=== PATIENT | female | born 1955 | race Caucasian/White ===

== ENCOUNTER → 2020-02-11 11:10 | Outpatient (CLI) | payer OTHER, SELFPAY ==
--- NOTE | 2020-02-11 11:16 | DI.CT.S_ITS ---
PROCEDURE: CT UE RT WO CON INDICATIONS: RIGHT SHOULDER INJURY TECHNIQUE: Noncontrast 1-1.5 mm thick sections acquired from the acromioclavicular joint to the inferior scapula, with coronal and sagittal reformatting. COMPARISON: None. FINDINGS: Image quality: Excellent. Bones: There is suggestion of age indeterminateHill-Sachs deformity involving posterior lateral humeral head. No acute appearing fracture involving anterior inferior glenoid is seen with slight anterior and inferior displacement of the fractured fragment. No other fracture or dislocation is seen. Moderate acromioclavicular joint osteoarthritic changes are seen. Mild glenohumeral joint osteoarthritic change is also noted. Visualized right upper to mid ribs are grossly intact. Soft tissues: There is small glenohumeral joint effusion. Well corticated calcification involving mid to posterior fibers of distal supraspinatus at its insertion on the greater tuberosity is seen suggestive of calcific tendinitis. No gross full-thickness rotator cuff tendon rupture. Visualized right lung field is clear. IMPRESSION: 1. acute appearing anterior inferior glenoid fracture with slightly displaced bony fragment consistent with a Bankart fracture. Age-indeterminate Hill-Sachs deformity involving posterior superior humeral head. No other fracture or dislocation is seen. Moderate acromioclavicular joint osteoarthritis and mild glenohumeral joint osteoarthritis. 2. suggestion of calcific tendonitis involving distal supraspinatus. No gross full-thickness rotator cuff tendon rupture. No significant rotator cuff muscle atrophy. Small joint effusion within the glenohumeral joint. Dictated by: Jer Schneider M.D. on 02/11/2020 at 13:35 Approved by: Jer Schneider M.D. on 02/11/2020 at 13:39
== END ==
PROVIDERS: Referring Provider Physician Assistant; Visit Provider Physician Assistant
DX: S42.141A Displaced fracture of glenoid cavity of scapula, right shoulder, initial encounter for closed fracture (principal); M19.011 Primary osteoarthritis, right shoulder; X58.XXXA Exposure to other specified factors, initial encounter
CPT/HCPCS: 73200

== ENCOUNTER → 2023-05-22 09:07 | Outpatient (CLI) | payer MEDICARE, SELFPAY ==
[2023-05-22 19:26] LABS: Alanine Aminotransferase 22 IU/L (<35); Albumin 3.9 g/dL (3.5-5.0); Albumin Globulin Ratio 1.3 (1.0-2.8); Alkaline Phosphatase 83 U/L (38-126); Aspartate Aminotransferase 26 IU/L (14-36); BUN Creatinine Ratio 15.7 (6-22); Bilirubin Total 0.4 mg/dL (0.2-1.3); Blood Urea Nitrogen 11 mg/dL (7-17); Calcium 9.6 mg/dL (8.4-10.2); Carbon Dioxide 26 mmol/L (22-32); Chloride 102 mmol/L (98-107); Cholesterol 267 mg/dL (140-199); Estimated Glomerular Filt Rate > 60 mL/min (>60); Globulin 3.1 g/dL (1.7-4.1); Glucose 113 mg/dL (80-110); HDL Cholesterol 48 mg/dL (40-60); HEMOLYSIS 19 (0-50); LDL Cholesterol Calculated 189 mg/dL (<100); Potassium 4.2 mmol/L (3.4-5.1); Sodium 138 mmol/L (137-145); Triglycerides 148 mg/dL (35-150)
[2023-05-22 19:42] LABS: Vitamin D 25 Hydroxy (D3) 43.9 ng/mL (30.0-100.0)
== END ==
PROVIDERS: PCP Family Medicine; Visit Provider Family Medicine
DX: Z13.1 Encounter for screening for diabetes mellitus (principal); Z13.6 Encounter for screening for cardiovascular disorders; E55.9 Vitamin D deficiency, unspecified
CPT/HCPCS: 80053; 80061; 82306

== ENCOUNTER → 2025-05-28 10:22 | Outpatient (CLI) | payer MEDICARE, SELFPAY ==
--- NOTE | 2025-05-28 10:24 | DI.RAD.S_ITS ---
PROCEDURE: XR DEXA AXIAL SKELETON INDICATIONS: osteopenia COMPARISON: None. FINDINGS: Lumbar Spine: Bone mineral density 0.857 g/cm2, T score -1.7. Left Femoral Neck: Bone mineral density 0.618 g/cm2, T score -2.1. Left Hip: Bone mineral density 0.771 g/cm2, T score -1.4. Fracture Risk Calculation (when applicable): 10-year fracture risk of a major osteoporotic fracture 11 percent and of a hip fracture 1.9 percent. (T score greater or equal to -1.0 to: NORMAL) (T score from -1.1 to -2.4: OSTEOPENIA) (T score less than or equal to -2.5: OSTEOPOROSIS) IMPRESSION: Low bone mineral density (osteopenia) by WHO classification. Follow-up guidelines as follows: Osteoporosis: Consider a repeat DEXA and Vertebral Fracture Assessment (VFA) exam in 2 years or sooner if medically necessary, to reassess this patient's status. Osteopenia: Consider a repeat DEXA in 2-3 years to reassess this patient's status, or if there is a new clinical indication. Normal: Consider a repeat DEXA in 5 years or sooner, or if there is a new clinical indication. All treatment decisions require clinical judgment and consideration of individual patient factors, including patient preferences, comorbidities, previous drug use, risk factors not captured in the FRAX model (e.g., frailty, falls, vitamin D deficiency, increased bone turnover, interval significant decline in bone density ) and possible under- or over-estimation of fracture risk by FRAX. In addition, the NOF Guide recommends that FDA-approved medical therapies be considered in postmenopausal women and men age >= 50 years with a: * Hip or vertebral (clinical or morphometric) fracture * T-score of <=-2.5 at the spine or hip * Ten-year fracture probability by FRAX of >= 3% for hip fracture or >=20% for major osteoporotic fracture. Dictated by: Wally Solitairo M.D. on 05/30/2025 at 13:56 Approved by: Wally Solitario M.D. on 05/30/2025 at 13:57
== END ==
PROVIDERS: PCP Family Medicine; Referring Provider Family Medicine; Visit Provider Family Medicine
DX: M85.89 Other specified disorders of bone density and structure, multiple sites (principal); Z78.0 Asymptomatic menopausal state
CPT/HCPCS: 77080